=== PATIENT | male | born 1990 | race Caucasian/White ===

== ENCOUNTER 2017-03-25 00:32 | Emergency (ER) | payer OTHER ==
[~2017-03-25] VITALS: Ht 180.3 cm; Wt 95.3 kg
[2017-03-25 00:37] VITALS: BP 145/98
[2017-03-25] MEDS ORDERED: ALBU0.0912 INH (00:41)
[2017-03-25 02:32] VITALS: BP 140/85
== END 2017-03-25 02:30 | disposition home or self-care (01) ==
LOC: MED 00:32
DX: M54.14 Radiculopathy, thoracic region (principal); Z79.899 Other long term (current) drug therapy
CPT/HCPCS: 99283